=== PATIENT | male | born 1955 | race Caucasian/White ===

== ENCOUNTER 2025-03-15 09:58 | Outpatient (CLI) | payer OTHER ==
[2025-03-15 10:44] LABS: Hematocrit 46.3 % (38.8-50.0); Hemoglobin 15.0 g/dL (13.5-17.5); Mean Corpuscular Hemoglobin 31.2 pg (27.0-33.0); Mean Corpuscular Volume 96.3 fL (81.2-95.1); Platelet Count 167 10x3/uL (150-450); Red Blood Cell (RBC) Count 4.81 10x6/uL (4.32-5.72); White Blood Cell (WBC) Count 8.22 10x3/uL (3.5-10.5)
[2025-03-15 11:07] LABS: Anion Gap 13 mmol/L (10-20); BUN (Urea Nitrogen) 20 mg/dL (8.4-25.7); Calc. Creatinine Clearance 0 mL/min (70-130); Calcium 8.5 mg/dL (7.8-10.44); Carbon Dioxide 25 mmol/L (23-31); Chloride 109 mmol/L (98-107); Glucose 96 mg/dL (80-115); Potassium 4.5 mmol/L (3.5-5.1); Sodium 142 mmol/L (136-145)
== END 2025-03-15 09:59 | disposition home or self-care (01) ==
LOC: CSHLAB 09:58
PROVIDERS: ATTEND Surgery
DX: Z01.812 Encounter for preprocedural laboratory examination (principal); C34.12 Malignant neoplasm of upper lobe, left bronchus or lung
CPT/HCPCS: 80048; 85027

== ENCOUNTER 2025-03-16 05:42 | Day surgery (SDC) | payer OTHER ==
[2025-03-15 10:22] VITALS: BMI 29.6
[2025-03-16] MEDS ORDERED: Bupivacaine HCl 0.5%/Epinephrine 1:200,000/PF 30 ml Vial ONE (06:13)
[2025-03-16] MEDS ORDERED: PROPOFOL 40 ML ONE (06:22)
[2025-03-16] MEDS ORDERED: CEFAZOLIN 2 GM VIAL ONE (06:37)
[2025-03-16] MEDS ORDERED: PHENYLEPHRINE-NS 100 MCG/ML 10 ML SYRINGE ONE (07:24)
== END 2025-03-16 08:50 | disposition home or self-care (01) ==
LOC: CSHSDC 05:42
PROVIDERS: ATTEND Surgery
PROC: 0JH60WZ Insertion of Totally Implantable Vascular Access Device into Chest Subcutaneous Tissue and Fascia, Open Approach (ICD-10-PCS; principal; 2025-03-16)
DX: C34.12 Malignant neoplasm of upper lobe, left bronchus or lung (principal); I10 Essential (primary) hypertension; F41.9 Anxiety disorder, unspecified; F32.A Depression, unspecified; F17.200 Nicotine dependence, unspecified, uncomplicated; Z79.899 Other long term (current) drug therapy
CPT/HCPCS: 36561; 71045; J1100; J1642; J2704; A6258; C1788